=== PATIENT | female | born 1975 | race Asian ===

== ENCOUNTER 2016-08-16 16:50 | Emergency (ER) | payer OTHER ==
[~2016-08-16] VITALS: Ht 162.6 cm; Wt 108.9 kg
[~2016-08-16 16:50] MED LIST: ACET-689 PO; ALBU90AE13 INH; PREDNISONE10 M1 PO; Z-PAK PO
[2016-08-16 18:12] LABS: PLATELET COUNT 331 K/uL (152-353)
[2016-08-16 18:21] LABS: POTASSIUM 3.9 mmol/L (3.6-5.2); SODIUM 133 mmol/L (136-145)
[2016-08-16 19:40] VITALS: BP 126/75; TEMP 98.5
== END 2016-08-16 19:44 | disposition home or self-care (01) ==
LOC: ED 16:50
PROVIDERS: Specialist
DX: R10.31 Right lower quadrant pain (principal); J98.01 Acute bronchospasm
CPT/HCPCS: 36415; 80048; 81000; 85027; 99283

== ENCOUNTER 2016-09-03 08:44 | Emergency (ER) | payer OTHER ==
[~2016-09-03] VITALS: Ht 162.6 cm; Wt 113.4 kg
[2016-09-03 09:45] LABS: PLATELET COUNT 356 K/uL (152-353)
[2016-09-03 11:03] VITALS: BP 130/74; TEMP 98.3
== END 2016-09-03 11:04 | disposition home or self-care (01) ==
LOC: ED 08:44
PROVIDERS: Family Medicine
DX: J06.9 Acute upper respiratory infection, unspecified (principal); J02.9 Acute pharyngitis, unspecified; J20.9 Acute bronchitis, unspecified; J45.909 Unspecified asthma, uncomplicated
CPT/HCPCS: 36415; 85027; 96374; 99283; J2930

== ENCOUNTER 2016-09-05 00:59 | Emergency (ER) | payer OTHER ==
[~2016-09-05] VITALS: Ht 162.6 cm; Wt 113.4 kg
[2016-09-05 01:12] VITALS: TEMP 98.1
[2016-09-05 01:33] LABS: PLATELET COUNT 361 K/uL (152-353)
[2016-09-05 01:46] LABS: SODIUM 135 mmol/L (136-145)
[2016-09-05 02:56] VITALS: BP 116/47
== END 2016-09-05 02:56 | disposition home or self-care (01) ==
LOC: ED 00:59
DX: J20.9 Acute bronchitis, unspecified (principal)
CPT/HCPCS: 36415; 80053; 85027; 96374; 99284; J2930

== ENCOUNTER 2016-09-24 01:25 | Emergency (ER) | payer OTHER ==
[~2016-09-24] VITALS: Ht 162.6 cm; Wt 110.2 kg
[2016-09-24 01:41] VITALS: BP 137/85; TEMP 98.5
== END 2016-09-24 02:36 | disposition home or self-care (01) ==
LOC: ED 01:25
DX: R51 Headache (principal)
CPT/HCPCS: 96372; 99282; J2300

== ENCOUNTER 2017-02-18 14:40 | Emergency (ER) | payer OTHER ==
[~2017-02-18] VITALS: Ht 162.6 cm; Wt 105.7 kg
[2017-02-18 14:45] VITALS: TEMP 98
[2017-02-18 15:07] VITALS: BP 126/76
== END 2017-02-18 15:10 | disposition home or self-care (01) ==
LOC: ED 14:40
DX: R00.2 Palpitations (principal); F41.9 Anxiety disorder, unspecified
CPT/HCPCS: 93005; 99282

== ENCOUNTER 2017-03-18 18:17 | Emergency (ER) | payer OTHER ==
[~2017-03-18] VITALS: Ht 162.6 cm; Wt 108.4 kg
[2017-03-18 18:25] VITALS: BP 130/82; TEMP 98.3
== END 2017-03-18 18:58 | disposition home health service (06) ==
LOC: ED 18:17
DX: R00.2 Palpitations (principal)
CPT/HCPCS: 93005; 99282

== ENCOUNTER 2017-05-07 18:59 | Emergency (ER) | payer OTHER ==
[~2017-05-07] VITALS: Ht 162.6 cm; Wt 64.0 kg
[2017-05-07 20:35] VITALS: BP 149/81; TEMP 99.5
== END 2017-05-07 20:20 | disposition home or self-care (01) ==
LOC: ED 18:59
DX: J02.9 Acute pharyngitis, unspecified (principal); B34.9 Viral infection, unspecified; R50.9 Fever, unspecified
CPT/HCPCS: 87081; 87804; 87880; 99283

== ENCOUNTER 2017-06-13 10:43 | Observation (INO) | payer OTHER ==
[~2017-06-13] VITALS: Ht 162.6 cm; Wt 110.5 kg
[2017-06-13 12:17] VITALS: BP 111/60; TEMP 98.6; Ht 162.6 cm; Wt 110.5 kg
[2017-06-13 13:13] LABS: PLATELET COUNT 372 K/uL (152-353)
[2017-06-13 13:39] LABS: POTASSIUM 3.5 mmol/L (3.6-5.2); SODIUM 137 mmol/L (136-145)
[2017-06-13 16:00] VITALS: BP 106/59; TEMP 98.8
[2017-06-13 20:00] VITALS: BP 104/48; TEMP 98.6
[2017-06-14] VITALS: BP 106/49; TEMP 98.7
[2017-06-14 04:00] VITALS: BP 111/51; TEMP 97.9
[2017-06-14 05:35] LABS: PLATELET COUNT 340 K/uL (152-353)
[2017-06-14 06:17] LABS: POTASSIUM 3.7 mmol/L (3.6-5.2); SODIUM 138 mmol/L (136-145)
[2017-06-14 08:00] VITALS: BP 112/51; TEMP 98.1
[2017-06-14 12:00] VITALS: BP 99/40; TEMP 98
[2017-06-14 16:00] VITALS: BP 98/45; TEMP 98.3
[2017-06-14 20:27] VITALS: BP 121/52; TEMP 98.3
[2017-06-15 00:22] VITALS: BP 127/54; TEMP 98.4
[2017-06-15 04:00] VITALS: BP 135/68; TEMP 97.6
[2017-06-15 08:00] VITALS: BP 125/64; TEMP 98.6
[2017-06-15] MEDS ORDERED: LEVAQUIN500 MG OR (09:37)
[2017-06-15] MEDS ORDERED: DIPH25CA90 PO (09:37)
[2017-06-15] MEDS ORDERED: ALBU90AE13 INH (09:37)
== END 2017-06-15 09:45 | disposition home or self-care (01) ==
LOC: MED/SURG 10:43
PROVIDERS: Family Medicine; ADMIT Nurse Practitioner Family
DX: J20.9 Acute bronchitis, unspecified (principal); R06.02 Shortness of breath; R06.2 Wheezing
CPT/HCPCS: 36415; 36600; 80053; 82805; 83880; 84484; 85027; 87070; 87205; 93005; 94640; 94664; 94760; 96367; 96374; 96375; 99220; G0378; G0379; J1200; J1956; J2930; J3475

== ENCOUNTER 2017-10-26 11:05 | Emergency (ER) | payer OTHER ==
[~2017-10-26] VITALS: Ht 162.6 cm; Wt 113.4 kg
[~2017-10-26 11:05] MED LIST changes: +DIPH25CA90 PO; +LEVAQUIN500 MG OR
[2017-10-26 14:19] VITALS: BP 126/73; TEMP 97.4
== END 2017-10-26 14:28 | disposition home or self-care (01) ==
LOC: ED 11:05
DX: F41.0 Panic disorder [episodic paroxysmal anxiety] (principal)
CPT/HCPCS: 99282

== ENCOUNTER 2017-12-04 20:43 | Emergency (ER) | payer OTHER ==
[~2017-12-04] VITALS: Ht 162.6 cm; Wt 110.7 kg
[2017-12-04] MEDS ORDERED: XANAX XR1 MG PO (20:59)
[2017-12-04] MEDS ORDERED: BREO ELLIPTA 101 INH IN (21:00)
[2017-12-04 21:48] LABS: PLATELET COUNT 272 K/uL (152-353)
[2017-12-04 22:31] VITALS: BP 120/70; TEMP 98.1
== END 2017-12-04 22:39 | disposition home or self-care (01) ==
LOC: ED 20:43
DX: R51 Headache (principal); R50.9 Fever, unspecified
CPT/HCPCS: 36415; 85027; 99283

== ENCOUNTER 2018-03-21 11:07 | Outpatient (CLI) | payer OTHER ==
[~2018-03-21 11:07] MED LIST changes: +BREO ELLIPTA 101 INH IN; +XANAX XR1 MG PO
[2018-03-21 11:30] LABS: PLATELET COUNT 367 K/uL (152-353)
== END 2018-03-21 19:33 | disposition home or self-care (01) ==
LOC: LABW 11:07
PROVIDERS: Nurse Practitioner Family
DX: N93.8 Other specified abnormal uterine and vaginal bleeding (principal); R10.2 Pelvic and perineal pain
CPT/HCPCS: 36415; 83001; 83002; 84402; 84403; 84436; 84439; 84443; 84479; 85027; 86039

== ENCOUNTER 2018-04-26 17:34 | Emergency (ER) | payer OTHER ==
[~2018-04-26] VITALS: Ht 162.6 cm; Wt 108.9 kg
[2018-04-26 17:40] VITALS: TEMP 98.4
[2018-04-26 18:06] LABS: PLATELET COUNT 352 K/uL (152-353)
[2018-04-26 18:08] LABS: POTASSIUM 3.7 mmol/L (3.6-5.2)
[2018-04-26 21:20] VITALS: BP 127/71
== END 2018-04-26 21:20 | disposition home or self-care (01) ==
LOC: ED 17:34
DX: R06.2 Wheezing (principal); N39.0 Urinary tract infection, site not specified
CPT/HCPCS: 36415; 80053; 80307; 81000; 85027; 87086; 87088; 94664; 96374; 99284; J2930

== ENCOUNTER 2018-04-27 17:57 | Emergency (ER) | payer OTHER ==
[~2018-04-27] VITALS: Ht 162.6 cm; Wt 108.9 kg
[2018-04-27 18:09] VITALS: TEMP 99.5
[2018-04-27 21:32] LABS: PLATELET COUNT 349 K/uL (152-353)
[2018-04-27 21:42] LABS: POTASSIUM 3.4 mmol/L (3.6-5.2); SODIUM 140 mmol/L (136-145)
[2018-04-28 00:45] VITALS: BP 126/74
== END 2018-04-28 00:45 | disposition home or self-care (01) ==
LOC: ED 17:57
DX: R07.89 Other chest pain (principal); N39.0 Urinary tract infection, site not specified
CPT/HCPCS: 36415; 80053; 80307; 81000; 82550; 82553; 84484; 85027; 93005; 94664; 96365; 96375; 99284; J1885; J2405; J2930; Q9963

== ENCOUNTER 2018-05-27 10:51 | Emergency (ER) | payer OTHER ==
[~2018-05-27] VITALS: Ht 162.6 cm; Wt 111.6 kg
[2018-05-27 11:05] VITALS: TEMP 99
[2018-05-27 11:53] LABS: PLATELET COUNT 414 K/uL (152-353)
[2018-05-27 12:02] LABS: POTASSIUM 3.9 mmol/L (3.6-5.2)
[2018-05-27 13:23] VITALS: BP 126/74
== END 2018-05-27 13:24 | disposition home or self-care (01) ==
LOC: ED 10:51
PROVIDERS: Family Medicine
DX: K59.09 Other constipation (principal); R10.84 Generalized abdominal pain; Z98.890 Other specified postprocedural states
CPT/HCPCS: 36415; 74022; 80053; 81000; 85027; 99283

== ENCOUNTER 2018-10-03 21:03 | Emergency (ER) | payer OTHER ==
[~2018-10-03] VITALS: Ht 162.6 cm; Wt 115.7 kg
[2018-10-03 22:47] LABS: PLATELET COUNT 343 K/uL (152-353)
[2018-10-03 22:55] LABS: POTASSIUM 4.1 mmol/L (3.6-5.2); SODIUM 134 mmol/L (136-145)
[2018-10-03 23:42] VITALS: BP 137/70; TEMP 98.2
== END 2018-10-03 23:47 | disposition home or self-care (01) ==
LOC: ED 21:03
PROVIDERS: Emergency Medicine
DX: J40 Bronchitis, not specified as acute or chronic (principal)
CPT/HCPCS: 80053; 82550; 82553; 84484; 85027; 93005; 94664; 96372; 99283; J2930

== ENCOUNTER 2018-11-21 13:13 | Emergency (ER) | payer OTHER ==
[~2018-11-21] VITALS: Ht 162.6 cm; Wt 117.9 kg
[2018-11-21 13:21] VITALS: TEMP 98.3
[2018-11-21 14:06] LABS: PLATELET COUNT 343 K/uL (152-353)
[2018-11-21 14:14] LABS: POTASSIUM 3.4 mmol/L (3.6-5.2); SODIUM 137 mmol/L (136-145)
[2018-11-21 15:45] VITALS: BP 140/78
== END 2018-11-21 15:45 | disposition home or self-care (01) ==
LOC: ED 13:13
PROVIDERS: Emergency Medicine
DX: J45.998 Other asthma (principal)
CPT/HCPCS: 36415; 80053; 82550; 82553; 84484; 85027; 93005; 94664; 96374; 99284; J2930

== ENCOUNTER 2019-01-03 17:25 | Outpatient (CLI) | payer OTHER | END 2019-01-03 23:09 | disposition home or self-care (01) | LOC: RAD 17:25 | DX: M25.511 Pain in right shoulder (principal) ==

== ENCOUNTER 2019-03-21 00:13 | Emergency (ER) | payer OTHER ==
[~2019-03-21] VITALS: Ht 162.6 cm; Wt 117.9 kg
[2019-03-21 00:15] VITALS: BP 130/66; TEMP 98.2
== END 2019-03-21 00:15 | disposition home or self-care (01) ==
LOC: ED 00:13
DX: Z01.30 Encounter for examination of blood pressure without abnormal findings (principal)
CPT/HCPCS: 99281

== ENCOUNTER 2020-03-25 16:34 | Emergency (ER) | payer OTHER ==
[~2020-03-25] VITALS: Ht 162.6 cm; Wt 109.3 kg
[2020-03-25 19:19] LABS: PLATELET COUNT 301 K/uL (152-353)
[2020-03-25 19:26] LABS: POTASSIUM 3.3 mmol/L (3.6-5.2)
[2020-03-25 20:45] VITALS: BP 135/75; TEMP 98.6
== END 2020-03-25 20:45 | disposition home or self-care (01) ==
LOC: ED 16:34
PROVIDERS: Emergency Medicine
DX: J45.998 Other asthma (principal)
CPT/HCPCS: 36415; 80053; 83605; 85027; 85379; 87040; 96372; 99283; J2930

== ENCOUNTER 2020-11-23 09:59 | Outpatient (CLI) | payer OTHER ==
[2020-11-23 10:22] LABS: PLATELET COUNT 288 K/uL (152-353)
== END 2020-11-23 23:34 | disposition home or self-care (01) ==
LOC: LABW 09:59
PROVIDERS: ATTEND Nurse Practitioner Family
DX: J32.9 Chronic sinusitis, unspecified (principal)
CPT/HCPCS: 36415; 85027

== ENCOUNTER 2021-02-03 06:43 | Emergency (ER) | payer OTHER ==
[~2021-02-03] VITALS: Ht 162.6 cm; Wt 117.9 kg
[2021-02-03 07:02] VITALS: TEMP 97.6
[2021-02-03 07:56] LABS: PLATELET COUNT 303 K/uL (152-353)
[2021-02-03 08:12] LABS: POTASSIUM 3.8 mmol/L (3.6-5.2); SODIUM 138 mmol/L (136-145)
[2021-02-03 09:21] VITALS: BP 130/74
== END 2021-02-03 09:22 | disposition home or self-care (01) ==
LOC: ED 06:43
PROVIDERS: Family Medicine
DX: R07.89 Other chest pain (principal); R06.09 Other forms of dyspnea; R05 Cough; Z20.822 Contact with and (suspected) exposure to COVID-19
CPT/HCPCS: 80053; 81000; 84484; 85027; 87502; 87635; 93005; 96372; 99283; J2930; U0003

== ENCOUNTER 2021-03-02 11:41 | Outpatient (CLI) | payer OTHER | END 2021-03-02 21:23 | disposition home or self-care (01) | LOC: RAD 11:41 | PROVIDERS: ATTEND Nurse Practitioner Family | DX: J20.8 Acute bronchitis due to other specified organisms (principal) ==

== ENCOUNTER 2021-10-27 04:37 | Emergency (ER) | payer OTHER ==
[~2021-10-27] VITALS: Ht 162.6 cm; Wt 122.5 kg
[2021-10-27 05:23] LABS: PLATELET COUNT 283 K/uL (152-353)
[2021-10-27 05:31] LABS: POTASSIUM 3.7 mmol/L (3.6-5.2)
[2021-10-27] MEDS ORDERED: PRED20TA27 PO (06:39)
[2021-10-27 06:44] VITALS: BP 129/68; TEMP 98.3
== END 2021-10-27 06:46 | disposition home or self-care (01) ==
LOC: ED 04:37
PROVIDERS: Emergency Medicine
DX: J45.901 Unspecified asthma with (acute) exacerbation (principal); J32.8 Other chronic sinusitis; Z20.822 Contact with and (suspected) exposure to COVID-19
CPT/HCPCS: 36415; 80053; 84484; 85027; 87635; 93005; 94664; 96372; 99283; J2930; U0003

== ENCOUNTER 2022-01-07 21:44 | Emergency (ER) | payer OTHER ==
[~2022-01-07] VITALS: Ht 162.6 cm; Wt 122.5 kg
[~2022-01-07 21:44] MED LIST changes: +PRED20TA27 PO
[2022-01-07 23:58] VITALS: BP 150/70; TEMP 98.2
== END 2022-01-07 23:58 | disposition home or self-care (01) ==
LOC: ED 21:44
DX: J45.901 Unspecified asthma with (acute) exacerbation (principal)
CPT/HCPCS: 94664; 96372; 99283; J2930

== ENCOUNTER 2022-02-06 17:35 | Emergency (ER) | payer OTHER ==
[~2022-02-06] VITALS: Ht 162.6 cm; Wt 122.5 kg
[2022-02-06 17:44] VITALS: TEMP 98.8
[2022-02-06 18:06] LABS: PLATELET COUNT 317 K/uL (152-353)
[2022-02-06 18:10] LABS: POTASSIUM 3.6 mmol/L (3.6-5.2); SODIUM 136 mmol/L (136-145)
[2022-02-06 20:05] VITALS: BP 150/87
== END 2022-02-06 20:06 | disposition home or self-care (01) ==
LOC: ED 17:35
PROVIDERS: Hospitalist
DX: F41.8 Other specified anxiety disorders (principal); T40.715A Adverse effect of cannabis, initial encounter; X58.XXXA Exposure to other specified factors, initial encounter; Y92.89 Other specified places as the place of occurrence of the external cause
CPT/HCPCS: 36415; 80053; 82550; 83880; 84484; 85027; 85610; 93005; 96360; 96374; 99284; J2930

== ENCOUNTER 2022-05-07 23:14 | Emergency (ER) | payer OTHER ==
[~2022-05-07] VITALS: Ht 162.6 cm; Wt 123.4 kg
[2022-05-08 00:55] LABS: PLATELET COUNT 310 K/uL (152-353)
[2022-05-08 01:49] LABS: POTASSIUM 4.1 mmol/L (3.6-5.2)
[2022-05-08 02:04] VITALS: BP 129/81; TEMP 98.9
[2022-05-08] MEDS ORDERED: LEVOFLOXACIN750 MG PO (07:23)
== END 2022-05-08 02:05 | disposition home or self-care (01) ==
LOC: ED 23:14
PROVIDERS: Emergency Medicine
DX: J40 Bronchitis, not specified as acute or chronic (principal); R73.9 Hyperglycemia, unspecified
CPT/HCPCS: 36415; 80048; 85027; 87502; 94664; 96365; 96376; 99284; J1956; J2930

== ENCOUNTER 2022-05-14 00:06 | Emergency (ER) | payer OTHER ==
[~2022-05-14] VITALS: Ht 162.6 cm; Wt 124.7 kg
[~2022-05-14 00:06] MED LIST changes: +LEVOFLOXACIN750 MG PO
[2022-05-14 01:43] VITALS: BP 119/63; TEMP 97.6
== END 2022-05-14 01:43 | disposition home or self-care (01) ==
LOC: ED 00:06
DX: H60.8X1 Other otitis externa, right ear (principal)
CPT/HCPCS: 99281

== ENCOUNTER 2022-06-09 18:13 | Emergency (ER) | payer OTHER ==
[~2022-06-09] VITALS: Ht 162.6 cm; Wt 123.4 kg
[2022-06-09 18:55] LABS: POTASSIUM 3.8 mmol/L (3.6-5.2)
[2022-06-09 18:56] LABS: PLATELET COUNT 298 K/uL (152-353)
[2022-06-09] MEDS ORDERED: ONDA4TAB3 PO (19:33)
[2022-06-09 19:52] VITALS: BP 131/70; TEMP 98.3
== END 2022-06-09 19:32 | disposition home or self-care (01) ==
LOC: ED 18:13
PROVIDERS: Emergency Medicine
DX: A08.39 Other viral enteritis (principal)
CPT/HCPCS: 80048; 85027; 96374; 99284; J2405

== ENCOUNTER 2022-10-27 11:30 | Outpatient (CLI) | payer OTHER ==
[~2022-10-27 11:30] MED LIST changes: +ONDA4TAB3 PO
== END 2022-10-27 20:50 | disposition home or self-care (01) ==
LOC: RAD 11:30
PROVIDERS: ATTEND Nurse Practitioner Family
DX: M54.59 Other low back pain (principal); M25.511 Pain in right shoulder; M25.512 Pain in left shoulder

== ENCOUNTER 2022-11-16 09:45 | Outpatient (CLI) | payer OTHER | END 2022-11-16 19:07 | LOC: MAMMO 09:45 | PROVIDERS: ATTEND Nurse Practitioner Family | DX: Z12.31 Encounter for screening mammogram for malignant neoplasm of breast (principal) ==

== ENCOUNTER 2022-12-23 00:08 | Emergency (ER) | payer OTHER ==
[~2022-12-23] VITALS: Ht 162.6 cm; Wt 120.7 kg
[2022-12-23 00:20] VITALS: TEMP 98.1
[2022-12-23 01:50] VITALS: BP 136/70
== END 2022-12-23 01:50 | disposition home or self-care (01) ==
LOC: ED 00:08
DX: J18.9 Pneumonia, unspecified organism (principal)
CPT/HCPCS: 94664; 96372; 99283; J2930

== ENCOUNTER 2023-02-16 22:59 | Emergency (ER) | payer OTHER ==
[~2023-02-16] VITALS: Ht 162.6 cm; Wt 121.1 kg
[2023-02-17 01:15] VITALS: BP 126/77; TEMP 97.8
== END 2023-02-17 01:15 | disposition home or self-care (01) ==
LOC: ED 22:59
DX: M25.552 Pain in left hip (principal); M54.50 Low back pain, unspecified; M54.30 Sciatica, unspecified side
CPT/HCPCS: 96372; 99283; J1100; J1885

== ENCOUNTER 2023-03-26 07:21 | Emergency (ER) | payer OTHER ==
[~2023-03-26] VITALS: Ht 162.6 cm; Wt 121.1 kg
[2023-03-26 08:29] LABS: PLATELET COUNT 347 K/uL (152-353)
[2023-03-26 08:31] LABS: POTASSIUM 3.7 mmol/L (3.6-5.2)
[2023-03-26 08:55] VITALS: BP 108/61; TEMP 97.2
== END 2023-03-26 08:55 | disposition home or self-care (01) ==
LOC: ED 07:21
PROVIDERS: Family Medicine
DX: J45.901 Unspecified asthma with (acute) exacerbation (principal); J32.9 Chronic sinusitis, unspecified; R51.9 Headache, unspecified; E11.65 Type 2 diabetes mellitus with hyperglycemia
CPT/HCPCS: 36415; 80053; 81000; 85027; 94664; 96372; 99283; J1885; J2930